=== PATIENT | female | born 1980 | race Caucasian/White ===

== ENCOUNTER 2018-11-21 06:25 | Emergency (ER) | payer MEDICARE ==
--- NOTE | 2018-11-21 06:44 | ER Report ---
History and Physical Time Seen By MD: 06:28 (RADHA GUAN DO) HPI/ROS CHIEF COMPLAINT: Right upper quadrant pain, flu symptoms HISTORY OF PRESENT ILLNESS: 38-year-old female with a complex previous past medical history including hypertension, gastric bypass 2014 with weight loss from 275 down to her current 150, hysterectomy, cervical dysplasia, transfusions for heavy uterine bleeding requiring transfusions. She had competitions related to her gastric bypass and and have a resection of 18 cm of her small bowel and half of her stomach in April of last year. Now she presents with flulike symptoms since last Saturday. She notes a dull headache but not migraine. She does have a history of migraines Yesterday afternoon she began to develop some right upper quadrant, right lower chest pain became much more intense throughout the night. Patient's had severe nausea. She's also had several episodes of vomiting. She notes that her stools have been loose over the last several days. She has IBS and tends to alternate between diarrhea and constipation. REVIEW OF SYSTEMS: Respiratory: No cough, no dyspnea. Cardiovascular: No chest pain, no palpitations. Gastrointestinal: As above Musculoskeletal: No back pain. (RADHA GUAN DO) Allergies: Coded Allergies: Penicillins (Verified Allergy, Unknown, 11/21/18) Sulfa (Sulfonamide Antibiotics) (Verified Allergy, Unknown, 11/21/18) NSAIDS (Non-Steroidal Anti-Inflamma (Verified Adverse Reaction, Unknown, 11/21/18) Home Meds Active Scripts Ondansetron 4 Mg Odt (ONDANSETRON 4 MG ODT) 4 Mg Tab.rapdis, 4 MG PO Q8H for Nausea, #10 TAB Prov:GRAHAM BARKLEY MD 11/21/18 Hydrocodone Bit/Acetaminophen (NORCO 5-325 TABLET) 1 Each Tablet, 1 EACH PO Q4- 6H for PAIN, #10 TAB Prov:GRAHAM BARKLEY MD 11/21/18 Reported Medications Vit D3/Folic Acid/B2/B6/B12 (FOLGARD TABLET) 1 Each Tablet, 1 EACH PO 11/21/18 Cyanocobalamin (Vitamin B-12) (B-12) 5,000 Mcg/1 Ml Drops 11/21/18 Multivitamin With Minerals (MULTIPLE VITAMIN) 1 Each Tablet, 1 EACH PO, TAB 11/21/18 Dexlansoprazole (DEXILANT) 30 Mg [place].dr.mp, 30 MG PO 11/21/18 Topiramate (TOPAMAX) 25 Mg Cap.sprink, 25 MG PO BID 11/21/18 Furosemide (LASIX) 20 Mg Tablet, 1 TAB PO Q8H, TAB 11/21/18 Potassium Gluconate (POTASSIUM) 99 Mg Tablet, 20 MG PO 11/21/18 Ranitidine Hcl (RANITIDINE HCL) 75 Mg Tablet, 75 MG PO BID 11/21/18 Omeprazole (OMEPRAZOLE) 20 Mg Tablet.dr, 20 MG PO BID, TAB 11/21/18 Lansoprazole (PREVACID) 30 Mg Capsule.dr, 30 MG PO QDAY, CAP 11/21/18 Past Medical/Surgical History Past medical history hypertension, cervical dysplasia, heavy menstrual bleeding requiring transfusions Past surgical history: Left ovarian cyst resection, cervical dysplasia, status post cryotherapy 3, heavy menstrual bleeding, status post transfusions requiring hysterectomy, gastric bypass 2014 complicated by ulcers requiring a 2nd surgery in April 2018 with 3 section of 18 cm of small bowel and partial gastrectomy. (RADHA GUAN DO) Reviewed Nurses Notes: Yes Old Medical Records Reviewed: Yes (RADHA GUAN DO) Constitutional Vital Sign - Last 24 Hours 11/21/18 11/21/18 11/21/18 11/21/18 06:25 06:29 06:33 06:40 Temp 98.4 Pulse ??? 75 75 Resp 17 B/P (MAP) 140/92 140/92 (108) Pulse Ox 96 98 O2 Delivery Room Air 11/21/18 11/21/18 11/21/18 11/21/18 06:55 07:00 07:10 07:25 Pulse 67 64 ??? B/P (MAP) 129/98 (108) Pulse Ox 96 92 11/21/18 11/21/18 11/21/18 11/21/18 07:30 07:55 08:00 08:10 Pulse 53 57 B/P (MAP) 123/71 (88) 114/79 (91) Pulse Ox 92 91 11/21/18 11/21/18 11/21/18 11/21/18 08:15 08:30 08:45 09:00 Pulse 54 54 52 54 B/P (MAP) 108/77 (87) 109/82 (91) Pulse Ox 93 93 91 92 4/11/21/18 11/21/18 11/21/18 09:15 09:30 09:45 09:50 Pulse 64 56 ??? B/P (MAP) 118/73 (88) 119/73 (88) Pulse Ox 95 96 94 11/21/18 11/21/18 11/21/18 11/21/18 10:00 10:05 10:20 10:30 Pulse 59 58 60 B/P (MAP) 111/79 (90) 127/88 (101) Pulse Ox 96 97 92 11/21/18 11/21/18 11/21/18 11/21/18 10:35 10:50 11:00 11:05 Pulse 58 60 58 B/P (MAP) 108/81 (90) Pulse Ox 93 91 90 (GRAHAM BARKLEY MD) Physical Exam General Appearance: The patient is alert, has no immediate need for airway protection and no current signs of toxicity. Vital signs stable, afebrile, pulse ox normal HEENT: Pupils equal and round no injection. Oropharynx without redness or exudate, mucous. Membranes are moist Respiratory: Chest is non tender, lungs are clear to auscultation, no chest wall tenderness, no rash Cardiac: regular rate and rhythm Gastrointestinal: Abdomen is soft and non tender, no masses, bowel sounds normal., No CVA tenderness Musculoskeletal: Neck: Neck is supple and non tender. No lymphadenopathy Extremities have full range of motion and are non tender. Skin: No rashes or lesions. DIFFERENTIAL DIAGNOSIS: After history and physical exam differential diagnosis was considered for abdominal pain including but not limited to appendicitis, cholecystitis, gastritis and urinary tract infection. Additionally,flank pain including but not limited to musculoskeletal causes, kidney stone, pyelonephritis, shingles, and intra-abdominal causes such as diverticulitis and appendicitis. (RADHA GUAN DO) Medical Decision Making Data Points Result Diagram: 11/21/18 0640 11/21/18 0640 Laboratory Hematology Test 11/21/18 06:40 11/21/18 09:50 Red Blood Count 4.72 M/uL (4.17-5.56) Mean Corpuscular Volume 91.5 fL (80.0-96.0) Mean Corpuscular Hemoglobin 31.6 pg (26.0-33.0) Mean Corpuscular Hemoglobin Concent 34.5 g/dL (32.0-36.0) Red Cell Distribution Width 13.3 % (11.5-14.5) Mean Platelet Volume 7.5 fL (7.2-11.1) Neutrophils (%) (Auto) 38.9 % (39.4-72.5) Lymphocytes (%) (Auto) 50.9 % (17.6-49.6) Monocytes (%) (Auto) 7.1 % (4.1-12.4) Eosinophils (%) (Auto) 2.0 % (0.4-6.7) Basophils (%) (Auto) 1.1 % (0.3-1.4) Nucleated RBC Relative Count (auto) 0.0 /100WBC Neutrophils # (Auto) 2.2 K/uL (2.0-7.4) Lymphocytes # (Auto) 2.9 K/uL (1.3-3.6) Monocytes # (Auto) 0.4 K/uL (0.3-1.0) Eosinophils # (Auto) 0.1 K/uL (0.0-0.5) Basophils # (Auto) 0.1 K/uL (0.0-0.1) Nucleated RBC Absolute Count (auto) 0.00 K/uL Sodium Level 141 mmol/L (137-145) Potassium Level 3.0 mmol/L (3.5-5.0) Chloride Level 103 mmol/L (98-107) Carbon Dioxide Level 27 mmol/L (22-31) Blood Urea Nitrogen 12 mg/dl (7-18) Creatinine 0.70 mg/dl (0.52-1.04) Glomerular Filtration Rate Calc > 60.0 Random Glucose 86 mg/dl (75-110) Calcium Level 9.4 mg/dl (8.4-10.2) Total Bilirubin 0.9 mg/dl (0.2-1.3) Aspartate Amino Transf (AST/SGOT) 34 U/L (0-35) Alanine Aminotransferase (ALT/SGPT) 33 U/L (0-56) Alkaline Phosphatase 57 U/L (0-126) Total Protein 7.5 g/dl (6.3-8.2) Albumin 4.6 g/dl (3.5-5.0) Amylase Level 89 U/L (0-110) Lipase 163 U/L (23-300) Urine Color Yellow Urine Clarity Clear Urine pH 5.0 pH (4.8-9.5) Urine Specific [place] 1.032 Urine Protein Negative mg/dL (NEGATIVE) Urine Glucose (UA) Negative mg/dL (NEGATIVE) Urine Ketones Trace mg/dL (NEGATIVE) Urine Blood Negative (NEGATIVE) Urine Nitrite Negative (NEGATIVE) Urine Bilirubin Negative (NEGATIVE) Urine Urobilinogen Negative mg/dL (0.2-1.9) Urine Leukocyte Esterase Negative (NEGATIVE) Urine RBC None /HPF (0-2/HPF) Urine WBC <1 /HPF (0-5/HPF) Urine Squamous Epithelial Cells Few /LPF (</=FEW) Urine Calcium Oxalate Crystals Few /HPF (NONE) Urine Bacteria Negative /HPF (NONE-FEW) Urine Mucus None /HPF (NONE-FEW) Chemistry Test 11/21/18 06:40 11/21/18 09:50 White Blood Count 5.6 k/uL (4.5-11.0) Red Blood Count 4.72 M/uL (4.17-5.56) Hemoglobin 14.9 g/dL (12.0-16.0) Hematocrit 43.1 % (34.0-47.0) Mean Corpuscular Volume 91.5 fL (80.0-96.0) Mean Corpuscular Hemoglobin 31.6 pg (26.0-33.0) Mean Corpuscular Hemoglobin Concent 34.5 g/dL (32.0-36.0) Red Cell Distribution Width 13.3 % (11.5-14.5) Platelet Count 232 K/uL (150-450) Mean Platelet Volume 7.5 fL (7.2-11.1) Neutrophils (%) (Auto) 38.9 % (39.4-72.5) Lymphocytes (%) (Auto) 50.9 % (17.6-49.6) Monocytes (%) (Auto) 7.1 % (4.1-12.4) Eosinophils (%) (Auto) 2.0 % (0.4-6.7) Basophils (%) (Auto) 1.1 % (0.3-1.4) Nucleated RBC Relative Count (auto) 0.0 /100WBC Neutrophils # (Auto) 2.2 K/uL (2.0-7.4) Lymphocytes # (Auto) 2.9 K/uL (1.3-3.6) Monocytes # (Auto) 0.4 K/uL (0.3-1.0) Eosinophils # (Auto) 0.1 K/uL (0.0-0.5) Basophils # (Auto) 0.1 K/uL (0.0-0.1) Nucleated RBC Absolute Count (auto) 0.00 K/uL Glomerular Filtration Rate Calc > 60.0 Calcium Level 9.4 mg/dl (8.4-10.2) Total Bilirubin 0.9 mg/dl (0.2-1.3) Aspartate Amino Transf (AST/SGOT) 34 U/L (0-35) Alanine Aminotransferase (ALT/SGPT) 33 U/L (0-56) Alkaline Phosphatase 57 U/L (0-126) Total Protein 7.5 g/dl (6.3-8.2) Albumin 4.6 g/dl (3.5-5.0) Amylase Level 89 U/L (0-110) Lipase 163 U/L (23-300) Urine Color Yellow Urine Clarity Clear Urine pH 5.0 pH (4.8-9.5) Urine Specific [place] 1.032 Urine Protein Negative mg/dL (NEGATIVE) Urine Glucose (UA) Negative mg/dL (NEGATIVE) Urine Ketones Trace mg/dL (NEGATIVE) Urine Blood Negative (NEGATIVE) Urine Nitrite Negative (NEGATIVE) Urine Bilirubin Negative (NEGATIVE) Urine Urobilinogen Negative mg/dL (0.2-1.9) Urine Leukocyte Esterase Negative (NEGATIVE) Urine RBC None /HPF (0-2/HPF) Urine WBC <1 /HPF (0-5/HPF) Urine Squamous Epithelial Cells Few /LPF (</=FEW) Urine Calcium Oxalate Crystals Few /HPF (NONE) Urine Bacteria Negative /HPF (NONE-FEW) Urine Mucus None /HPF (NONE-FEW) Urinalysis Test 11/21/18 09:50 Urine Color Yellow Urine Clarity Clear Urine pH 5.0 pH (4.8-9.5) Urine Specific [place] 1.032 Urine Protein Negative mg/dL (NEGATIVE) Urine Glucose (UA) Negative mg/dL (NEGATIVE) Urine Ketones Trace mg/dL (NEGATIVE) Urine Blood Negative (NEGATIVE) Urine Nitrite Negative (NEGATIVE) Urine Bilirubin Negative (NEGATIVE) Urine Urobilinogen Negative mg/dL (0.2-1.9) Urine Leukocyte Esterase Negative (NEGATIVE) Urine RBC None /HPF (0-2/HPF) Urine WBC <1 /HPF (0-5/HPF) Urine Squamous Epithelial Cells Few /LPF (</=FEW) Urine Calcium Oxalate Crystals Few /HPF (NONE) Urine Bacteria Negative /HPF (NONE-FEW) Urine Mucus None /HPF (NONE-FEW) (GRAHAM BARKLEY MD) ED Course/Re-evaluation Clinical Indication for ER IV: Hydration, IV Access Turned Over The care of the patient was turned over to Dr. Barkley. Dr. Guan I authorize my typed signature that I authenticated this report. (RADHA GUAN DO) ED Course I t/o c/o pt from Dr. Guan; ruq/ r flank pain diff from prior episodes, not as severe as pt's prior complication after gastric bypass. Pt improved in ED; labs, images unremarkable. Of note she did have initial hematuria that cleared; findings may be c/w recently passed nephrolith, though no sgs of reactive inflammation of kidney. Ultimately, using shared decision making model, we discussed further testing to include po/iv contrast ct given pt's surg hx and potential for complication. At this point, pt is comfortable for d/c though with SRP's. She will rtn for any worsening symptoms; if returns she understands we would likely obtain contrast enhanced CT for further evaluation. Decision to Disposition Date: Nov 21, 2018 Decision to Disposition Time: 11:12 (GRAHAM BARKLEY MD) Depart Departure Latest Vital Signs Vital Signs Date Time Temp Pulse Resp B/P (MAP) Pulse Ox O2 Delivery O2 Flow Rate FiO2 11/21/18 11:05 58 90 11/21/18 11:00 108/81 (90) 11/21/18 06:29 98.4 17 Room Air (GRAHAM BARKLEY MD) Impression: Primary Impression: Abdominal pain Additional Impression: Hypokalemia Condition: Improved Disposition: HOME OR SELF-CARE New Scripts Ondansetron 4 Mg Odt (ONDANSETRON 4 MG ODT) 4 Mg Tab.rapdis 4 MG PO Q8H for Nausea, #10 TAB Prov: GRAHAM BARKLEY MD 11/21/18 Hydrocodone Bit/Acetaminophen (NORCO 5-325 TABLET) 1 Each Tablet 1 EACH PO Q4-6H for PAIN, #10 TAB Prov: GRAHAM BARKLEY MD 11/21/18 Patient Instructions: Acute Abdominal Pain (DC) Additional Instructions: As we discussed, we have not clearly found the source of your pain. However, after today's evaluation, it is low likelihood that this is a severe cause. We discussed the risks and benefits of further testing and observation vs discharge and close follow up/return. You are comfortable with going home which is reasonable, but as we discussed, please return immediately for worsening pain, vomiting, fevers, difficulty breathing, or any concerns. Problem Qualifiers Primary Impression: Abdominal pain Abdominal location: right upper quadrant Qualified Codes: R10.11 - Right upper quadrant pain RADHA GUAN DO Nov 21, 2018 06:44 GRAHAM BARKLEY MD Nov 21, 2018 11:00
[2018-11-21] MEDS ORDERED: ONDANSETRON 4 MG/2 ML VIAL IVP ONE ×2 (06:45→08:50)
[2018-11-21] MEDS ORDERED: HYDROMORPHONE HCL 1 MG/ML SYRINGE IVP ONE (06:45)
[2018-11-21] MEDS ORDERED: NS(*) 0.9% 1000 ML BAG 1,000 ML IV ONE (06:45)
[2018-11-21] MEDS ORDERED: CYAN50006 (06:49)
[2018-11-21] MEDS ORDERED: OMEP-137 PO (06:49)
[2018-11-21] MEDS ORDERED: FURO20TA19 PO (06:49)
[2018-11-21] MEDS ORDERED: RANI75TA51 PO (06:49)
[2018-11-21] MEDS ORDERED: LAN30PT PO (06:49)
[2018-11-21] MEDS ORDERED: DEXL30CA5 PO (06:49)
[2018-11-21] MEDS ORDERED: MULT-1335 PO (06:49)
[2018-11-21] MEDS ORDERED: VIT1TABL4 PO (06:49)
[2018-11-21] MEDS ORDERED: POTA99TA6 PO (06:49)
[2018-11-21] MEDS ORDERED: TOPI25CA13 PO (06:49)
[2018-11-21 06:59] LABS: PLATELET COUNT, AUTOMATED 232 K/uL (150-450)
--- NOTE | 2018-11-21 08:13 | RADIOLOGY IMAGING REPORT ---
FAC[place]: [facility] [place]IENT NAME: Ana Up : 1980 MR: [id number] V: [id number] EXAM DATE: ORDERING PHYSICIAN: GRAHAM BARKLEY TECHNOLOGIST: Location: [facility] [place] Patient: Ana Up : 1980 Visit/Account:[id number] Date of Sevice: 11/21/2018 EXAMINATION: CT abdomen without IV contrast CT pelvis without IV contrast HISTORY: Hematuria. Right upper quadrant pain. TECHNIQUE: Spiral scan was through the abdomen and pelvis without intravenous contrast. Sagittal a nd coronal reformatted images are also submitted. One of the following dose optimization techniques was utilized in the performance of this exam: Autom ated exposure control; adjustment of the mA and/or kV according to the patient's size; or use of an i terative reconstruction technique. Specific details can be referenced in the facility's radiology C T exam operational policy. COMPARISON: None available. FINDINGS: Lower chest: Negative. Please note that without intravenous contrast, sensitivity to detection of parenchymal disease is estrella ited. Liver / biliary: Negative. Pancreas: Negative. Spleen: Negative. Adrenal glands: Negative. Kidneys: Negative. Pelvic structures: Hysterectomy. Otherwise negative. Bowel: Gastric bypass. No obstruction. Normal appendix. Peritoneum / retroperitoneum / mesenteries: Negative. Vessels: Mild aortic calcification without aneurysm. Lymph nodes: Negative. Musculoskeletal / Body wall: Negative. IMPRESSION: No acute abnormality in the abdomen or pelvis. Report Dictated By: Robert Minor MD at 11/21/2018 8:02 AM Report E-Signed By: Robert Minor MD at 11/21/2018 8:09 AM WSN:[id number]
--- NOTE | 2018-11-21 10:12 | RADIOLOGY IMAGING REPORT ---
FACILITY: [facility] - [place] PATIENT NAME: Ana Up : 1980 MR: [id number] V: [id number] EXAM DATE: ORDERING PHYSICIAN: GRAHAM BARKLEY TECHNOLOGIST[place] [facility] [place] : 1980 Visit/Account:[id number] Date of Sevice: 11/21/2018 GALLBLADDER HISTORY: ttp ruq, leukocytosis COMPARISON: CT abdomen pelvis performed today FINDINGS: Gallbladder: There is no demonstration of gallbladder stones or sludge however there was a positive M urphy sign by technologist notation. Liver: Negative. Common duct: Normal, 4.9 mm diameter. Pancreas: Partially obscured by bowel, visualized aspects unremarkable. Right kidney: Right kidney appears unremarkable measuring 10.8 cm in length Upper abdominal aorta and IVC: Patent. Ascites: None visualized. IMPRESSION: Unremarkable right upper quadrant ultrasound Report Dictated By: Bianca Schuler MD at 11/21/2018 9:59 AM Report E-Signed By: Bianca Schuler MD at 11/21/2018 10:09 AM WSN:[id number]
[2018-11-21] MEDS ORDERED: ONDANSETRON 4 MG ODT TABDP SL ONE (10:35)
[2018-11-21] MEDS ORDERED: APAP/HYDROCODONE 325/5 TAB PO ONE (10:35)
[2018-11-21 11:00] VITALS: BP 108/81
[2018-11-21] MEDS ORDERED: HYDR-653 PO (11:13)
[2018-11-21] MEDS ORDERED: ONDA4TAB9 PO (11:13)
== END 2018-11-21 11:22 | disposition home or self-care (01) ==
LOC: ER 06:29
DX: R10.11 Right upper quadrant pain (principal); E87.6 Hypokalemia
CPT/HCPCS: 74176; 76705; 81001; 82150; 83690; 85025; 96361; 96374; 96375; 96376; 99284; A9270; J1170; J2405; J7030; Q0162; 82040; 82247; 82310; 82374; 82435; 82565; 82947; 84075; 84132; 84155; 84295; 84450; 84460; 84520; S0119